=== PATIENT | male | born 1950 | race Caucasian/White ===

== ENCOUNTER 2016-09-08 19:36 | Inpatient (IN) | payer MEDICARE, BC ==
--- NOTE | 2016-09-09 00:07 | NUR ---
Patient arrived from ED at 2240. Patient kind, cooperative, adjusted self and transferred self to bed. VS as noted. Denies any SOA, or chest pain. Monitor attached, continuous assessment and monitoring.
--- NOTE | 2016-09-10 15:16 | NUR ---
1440: REPORT GIVEN TO ISHA AREVALO RN ON [facility] 1455: PT TRANSPORTED TO [facility] VIA WHEELCHAIR, FAMILY AT BEDSIDE. VSS AND NO DISTRESS OR PAIN NOTED.
--- NOTE | 2016-09-10 15:30 | NUR ---
1350 RECEIVED FROM ICU PT. WITH NO C/O, RESP EASY NON-LABORED SKIN W/D COLOR PINK
[2016-09-12] MEDS ORDERED: ACETAMINOPHEN325 MG PO (09:27)
[2016-09-12] MEDS ORDERED: DAILY VITE1 EACH PO (09:27)
[2016-09-12] MEDS ORDERED: TESSALON PERLE100 MG PO (09:28)
[2016-09-12] MEDS ORDERED: XARELTO15 MG PO (09:47)
[2016-09-12] MEDS ORDERED: XARELTO20 MG PO (09:48)
== END 2016-09-11 14:05 | disposition home or self-care (01) | DRG 176 ==
LOC: ER 19:36 → ICU 22:13 → MED 09-10 14:57
PROVIDERS: ADMIT Internal Medicine
DX: I26.99 Other pulmonary embolism without acute cor pulmonale (principal); G47.33 Obstructive sleep apnea (adult) (pediatric); Z79.82 Long term (current) use of aspirin; Z79.899 Other long term (current) drug therapy
CPT/HCPCS: 36415; 93306; 97161-GP; J1644

== ENCOUNTER 2016-09-08 19:36 | Emergency (ER) | payer MEDICARE, BC ==
[2016-09-12] MEDS ORDERED: ACETAMINOPHEN325 MG PO (09:27)
[2016-09-12] MEDS ORDERED: DAILY VITE1 EACH PO (09:27)
[2016-09-12] MEDS ORDERED: TESSALON PERLE100 MG PO (09:28)
[2016-09-12] MEDS ORDERED: XARELTO15 MG PO (09:47)
[2016-09-12] MEDS ORDERED: XARELTO20 MG PO (09:48)
== END 2016-09-08 22:12 | disposition critical access hospital (66) ==
LOC: ER 19:36
DX: I26.99 Other pulmonary embolism without acute cor pulmonale (principal); Z79.899 Other long term (current) drug therapy; Z79.82 Long term (current) use of aspirin
CPT/HCPCS: 36415; 96365; 96366; 96376; J1644